=== PATIENT | male | born 1955 | race Caucasian/White ===

== ENCOUNTER → 2017-04-04 | Outpatient (CLI) | payer OTHER, BC ==
[~2017-04-04] MED LIST: AMARYL4 MG PO; AMLODIPINE BESYL5 MG PO; CEFTIN 250 MG250 MG PO; COZAAR 50 MG TA50 M2 PO; DEPO-TESTO200 MG/1 M IM; FLOMAX0.4 MG PO; LEVEMIR SUBQ; LIPITOR 20 MG T20 M1 PO; LOPRESSOR50 PO; METFORMIN HCL500 MG PO; NEURONTIN 300300 M1 PO; OXYCODON-ACETA1 EAC1 PO; PROTONIX40 M4 PO; TRULICITY0.75 MG/0. SQ; VIAGRA50 MG PO; XARELTO10 MG PO; [UNRECOGNIZED DRUG - REMARK] PO
== END ==
LOC: RAD 14:25
DX: R05 Cough (principal); E11.9 Type 2 diabetes mellitus without complications; I10 Essential (primary) hypertension; E78.5 Hyperlipidemia, unspecified; G47.33 Obstructive sleep apnea (adult) (pediatric); Z87.01 Personal history of pneumonia (recurrent)

== ENCOUNTER → 2018-04-21 | Outpatient (CLI) | payer OTHER, BC | LOC: RAD 10:59 | DX: M51.16 Intervertebral disc disorders with radiculopathy, lumbar region (principal) ==

== ENCOUNTER → 2019-08-12 | Outpatient (CLI) | payer OTHER, BC | LOC: SJCVC 10:43 | PROVIDERS: ATTEND Internal Medicine Cardiovascular Disease | DX: R94.31 Abnormal electrocardiogram [ECG] [EKG] (principal); I10 Essential (primary) hypertension; E78.00 Pure hypercholesterolemia, unspecified; R06.09 Other forms of dyspnea; E11.9 Type 2 diabetes mellitus without complications; G47.33 Obstructive sleep apnea (adult) (pediatric); E78.5 Hyperlipidemia, unspecified; Z79.4 Long term (current) use of insulin; Z99.89 Dependence on other enabling machines and devices; Z82.49 Family history of ischemic heart disease and other diseases of the circulatory system; Z79.84 Long term (current) use of oral hypoglycemic drugs; Z79.899 Other long term (current) drug therapy ==

== ENCOUNTER → 2019-10-12 | Outpatient (CLI) | payer OTHER, BC | LOC: SJCVCIMAG 09:04 | PROVIDERS: ATTEND Internal Medicine Cardiovascular Disease | DX: R00.0 Tachycardia, unspecified (principal); I10 Essential (primary) hypertension; E11.9 Type 2 diabetes mellitus without complications; E78.5 Hyperlipidemia, unspecified; Z79.899 Other long term (current) drug therapy ==

== ENCOUNTER → 2020-03-09 | Outpatient (CLI) | payer OTHER, BC | LOC: LAB 13:35 | PROVIDERS: ATTEND Nurse Practitioner | DX: U07.1 COVID-19 (principal) ==